=== PATIENT | male | born 1975 | race Two or more races ===

== ENCOUNTER 2021-07-20 10:24 | Emergency (ER) | payer OTHER ==
[~2021-07-20] VITALS: Ht 190.5 cm; Wt 101.6 kg
[~2021-07-20 10:24] MED LIST: CEFADROXIL500 MG PO; JANUMET XR 1001 EACH
[2021-07-20] MEDS ORDERED: FORTAMET1000 MG PO (10:49)
[2021-07-20] MEDS ORDERED: GLIMEPIRIDE4 MG (10:49)
[2021-07-20] MEDS ORDERED: PEPCID AC20 MG PO (16:54)
[2021-07-20] MEDS ORDERED: DICLOFENAC POTA50 MG PO (16:54)
[2021-07-20] MEDS ORDERED: AIRBORNE EFFER1 EACH PO (16:54)
== END 2021-07-20 17:24 ==
LOC: ER 10:24
DX: B34.9 Viral infection, unspecified (principal); E86.0 Dehydration; Z03.818 Encounter for observation for suspected exposure to other biological agents ruled out; Z79.84 Long term (current) use of oral hypoglycemic drugs; E11.9 Type 2 diabetes mellitus without complications